=== PATIENT | female | born 1975 ===

== ENCOUNTER 2021-04-26 10:13 | Emergency (ER) | payer SELFPAY ==
[2021-04-26] VITALS (7 sets, daily range): BP systolic 142–172; BP diastolic 99–126; PULSE 57–75; RESP 12–20; TEMP 36.8–36.9; O2SAT 99–100
--- NOTE | ~2021-04-26 | XR_ITS ---
EXAMINATION: XR chest 1V portable DATE: 04/26/2021 10:57 INDICATION: Hypertension. TECHNIQUE: A single frontal view of the chest was obtained. COMPARISON: Chest 2 views 02/01/2014, CT abdomen and pelvis 12/04/2013 FINDINGS: The chest demonstrates clear lungs without pneumonia, pleural effusion, or pneumothorax. Th e heart size is normal. IMPRESSION: 1. No acute cardiopulmonary disease. Reviewed, dictated and finalized at location A.
--- NOTE | 2021-04-26 10:35 | ECG_ITS ---
Measurements Intervals [place] Rate: 69 P: 57 NM: 142 QRS: 27 QRSD: 75 T: 28 QT: 417 QTc: 448 Interpretive Statements SINUS RHYTHM NORMAL ECG Electronically Signed On 04-27-2021 8:41:41 CDT by Lance Garcia D.O.
[2021-04-26] MEDS: METOPROLOL TARTRATE INJ 5 MG/5 ML VIAL IV PUSH (11:08)
[2021-04-26] MEDS: NITROGLYCERIN OINTMENT 1 INCH DOSE 0.5 INCH TRANSDERM (11:08)
--- NOTE | 2021-04-26 11:09 | ED.GENADULT ---
HPI - General Adult General Chief complaint: Recheck/Abnormal Lab/Rx <Schuyler Jean PA-C - Last Filed: 04/26/21 13:40> Stated complaint: my blood pressure is high <Schuyler Jean PA-C - Last Filed: 04/26/21 13:40> Time Seen by Provider: 04/26/21 10:21 <Schuyler Jean PA-C - Last Filed: 04/26/21 13:40> Source: patient and RN notes reviewed <Schuyler Jean PA-C - Last Filed: 04/26/21 13:40> Mode of arrival: ambulatory <Schuyler Jean PA-C - Last Filed: 04/26/21 13:40> Limitations: no limitations <Schuyelr Jean PA-C - Last Filed: 04/26/21 13:40> History of Present Illness HPI narrative: Patient is a 45-year-old female who presents noting that she has had elevated blood pressure which has been untreated she notes that she has historically been on Bystolic does not know the dose has been off of it for roughly a year she has a history of medication noncompliance she has moved back to this area does not have a established primary care presents noting she has concern for elevated blood pressure denies any current symptoms of illness or other complaints <Schuyler Jean PA-C - Last Filed: 04/26/21 13:40> Related Data Allergies/adverse reactions: Allergies Allergy/AdvReac Type Severity Reaction Status Date / Time No Known Allergies Allergy Unverified 02/01/14 15:10 <Schuyler Jean PA-C - Last Filed: 04/26/21 13:40> Review of Systems Review of Systems: All systems reviewed & are unremarkable except as noted in HPI and below <Schuyler Jean PA-C - Last Filed: 04/26/21 13:40> PMFSH Past Medical History Medical History: Medical History (Updated 04/26/21 @ 13:39 by Schuyler Jean PA-C) Hypertension <Schuyler Jean PA-C - Last Filed: 04/26/21 13:40> Exam Narrative: GENERAL: Well-appearing, well-nourished, and in no acute distress. HEAD: Normocephalic, atraumatic. EYES: PERRLA and EOMI. ENT: Nares clear, no rhinorrhea or epistaxis. Mucous membranes moist. CHEST: Clear to auscultation. No respiratory distress. No wheezes rales or rhonchi HEART: Regular rate and rhythm. No murmur heard. Normal peripheral pulses. ABDOMEN: Soft, nontender, nondistended EXTREMITIES: Normal range of motion. No edema. SKIN: Warm, dry, no rash. NEURO: No focal deficits. Alert and oriented x3. Cranial nerves II through XII grossly intact PSYCH: Normal mood and affect. <YVETTE Breaux Last Filed: 04/26/21 13:40> Course Course Emergency Course: Patient in the room nondistressed aware of case findings treatment plan and diagnosis agreeing to follow-up as instructed or to return if symptoms worsen or concerns <YVETTE Breaux Last Filed: 04/26/21 13:40> Vital Signs Vital signs: Vital Signs Temperature 98.5 F 04/26/21 10:44 Pulse Rate 75 04/26/21 10:44 Respiratory Rate 14 04/26/21 10:44 Blood Pressure 170/120 H 04/26/21 10:44 Pulse Oximetry 100 04/26/21 10:44 Temperature 98.3 F 04/26/21 14:05 Pulse Rate 63 04/26/21 14:05 Respiratory Rate 18 04/26/21 14:05 Blood Pressure 142/99 H 04/26/21 14:05 Pulse Oximetry 100 04/26/21 14:05 <YVETTE Breaux Last Filed: 04/26/21 13:40> Medical Decision Making MDM Narrative Medical decision making narrative: Patient evaluated no high risk changes in her blood work had improvement with medications will be discharged home provided with primary care follow-up and reasons to return <YVETTE Breaux Last Filed: 04/26/21 13:40> Vital Signs Vital Signs: Vital Signs Temperature 98.5 F 04/26/21 10:44 Pulse Rate 75 04/26/21 10:44 Respiratory Rate 14 04/26/21 10:44 Blood Pressure 170/120 H 04/26/21 10:44 Pulse Oximetry 100 04/26/21 10:44 Temperature 98.3 F 04/26/21 14:05 Pulse Rate 63 04/26/21 14:05 Respiratory Rate 18 04/26/21 14:05 Blood Pressure 142/99 H 04/26/21 14:05 Pulse Oximetry 100 04/06
[2021-04-26 11:10] LABS: Basophils Absolute Auto 0.1 K/mm3 (0.0-0.1); Eosinophils Absolute Auto 0.2 K/mm3 (0-0.3); Eosinophils Percent Auto 3.3 % (0-4.4); Hematocrit 46.2 % (37.0-47.0); Hemoglobin 15.6 g/dL (12.0-15.0); Immature Granulocyte Absolute 0.02 K/mm3 (0.00-0.031); Immature Granulocyte Percent A 0.3 % (0-0.5); Lymphocytes Percent Auto 28.8 % (18.3-44.2); Mean Corpuscular HGB Conc 33.8 g/dl (32-36); Mean Corpuscular Hemoglobin 32.1 pg (26-34); Mean Corpuscular Volume 95.1 fl (80-100); Mean Platelet Volume 10.8 fl (7.4-10.4); Monocytes Absolute Auto 0.6 K/mm3 (0.1-0.6); Monocytes Percent Auto 8.6 % (2.6-8.5); Neutrophils Absolute Auto 4.2 K/mm3 (1.3-6.7); Platelet Count Result 250 k/mm3 (150-375); Red Blood Count 4.86 M/mm3 (4.2-5.4); Red Cell Distribution Width 12.7 % (11.5-14.5); White Blood Count 7.3 K/mm3 (4.5-10.0)
[2021-04-26 11:18] LABS: INR 0.9
[2021-04-26 11:19] LABS: Partial Thromboplastin Time 26.4 SECONDS (22.3-36.8)
[2021-04-26 11:48] LABS: Alanine Aminotransferase 24 U/L (4-35); Alkaline Phosphatase 62 U/L (38-126); Anion Gap 5 mmol/L (8-16); Aspartate Amino Transferase 34 U/L (14-36); Bilirubin,Total 0.5 mg/dL (0.2-1.3); Blood Urea Nitrogen 17 mg/dL (7-17); Calcium 9.1 mg/dL (8.4-10.2); Carbon Dioxide 29 mmol/L (22-30); Chloride 104 mmol/L (98-107); Estimated CRCL calculation 93 ml/min; Estimated Glomerular Filt Rate > 60; Glucose 98 mg/dL (65-110); Potassium 4.4 mmol/L (3.4-5.0); Sodium 138 mmol/L (137-145)
[2021-04-26 11:52] LABS: Troponin I < 0.012 ng/mL (0.000-0.034)
[2021-04-26 12:23] LABS: Add Urine Microscopic? YES; Appearance Urine Cloudy (Clear); Bacteria Urine Trace /hpf; Bilirubin Urine Negative (Negative); Blood Urine Negative (Negative); Color Urine Yellow (Yellow); Glucose Urine UA Negative (Negative); Ketones Urine Negative (Negative); Leukocyte Esterase Ur Negative LEU/UL (Negative); Mucus Urine Rare /lpf; Nitrate Urine Negative (Negative); Protein Urine 1+ mg/dL (Negative); Specific Grav Ur 1.017 (1.001-1.035); Squamous Epithelial Cell Urine Many /hpf (Few); Urobilinogen Urine Negative mg/dL (<2.0); WBC Urine 0-3 /hpf
[2021-04-26] MEDS: KETOROLAC 30 MG/ML VIAL (*BKC) IV PUSH (12:27)
[2021-04-26 12:38] LABS: Amphetamine Screen Urine Negative (Negative); Barbiturate Screen Urine Negative (Negative); Benzodiazepines Screen Urine Negative (Negative); Cannabinoid Screen Urine Positive (Negative); Cocaine Screen Urine Negative (Negative); Methadone Screen Urine Negative (Negative); Opiate Screen Urine Negative (Negative); Phencyclidine Screen Urine Negative (Negative)
[2021-04-26 14:04] LABS: Troponin I < 0.012 ng/mL (0.000-0.034)
== END 2021-04-26 14:05 | disposition home or self-care (01) ==
PROVIDERS: Emergency Medicine Emergency Medical Services; Emergency Provider General Practice
DX: R03.0 Elevated blood-pressure reading, without diagnosis of hypertension (principal)
CPT/HCPCS: 36415; 71045; 80053; 80307; 81001; 84484; 85025; 85610; 85730; 93005; 96374; 96375; 99284; A9270; J1885

== ENCOUNTER 2022-02-25 11:21 | Emergency (ER) | payer SELFPAY ==
--- NOTE | ~2022-02-25 | XR_ITS ---
EXAMINATION: XR chest 2V DATE: 02/25/2022 12:05 INDICATION: Chest pain TECHNIQUE: AP and lateral views of the chest are obtained. COMPARISON: 04/26/2021 FINDINGS: The lungs are free of acute opacities. No pleural effusion or pneumothorax. The cardiomedia stinal silhouette is normal. There is mild thoracic spondylosis. IMPRESSION: 1. No acute cardiopulmonary abnormality. Reviewed, dictated and finalized at location B.
--- NOTE | ~2022-02-25 | US_ITS ---
EXAMINATION: US venous doppler LE RT DATE: 02/25/2022 12:02 INDICATION: Right lower limb pain TECHNIQUE: Solares scale images without and with compression and Doppler images of the right lower extre mity veins were obtained. COMPARISON: None FINDINGS: The right common femoral vein, profunda femoral vein, femoral vein, popliteal vein, peronea l trunk, posterior tibial veins, and greater saphenous vein are patent. IMPRESSION: 1. Patent right lower extremity veins. No evidence of deep venous thrombosis. Reviewed, dictated and finalized at location B.
[2022-02-25 11:27] VITALS: BP 162/100; PULSE 89; RESP 22; TEMP 36.6; O2SAT 99
--- NOTE | 2022-02-25 11:31 | ECG_ITS ---
Measurements Intervals [place] Rate: 90 P: 68 [place]: 130 QRS: 43 QRSD: 75 T: 44 QT: 362 QTc: 443 Interpretive Statements SINUS RHYTHM COMPARED TO ECG 04/26/2021 10:55:31 NO SIGNIFICANT CHANGES Electronically Signed On 02-25-2022 12:40:52 CDT by Bari Nicholas M.D.
--- NOTE | 2022-02-25 11:38 | ED.CHESTPAIN ---
HPI - Chest Pain General Chief Complaint: Chest Pain Stated Complaint: chest pain and numbness to leg Time Seen by Provider: 02/25/22 11:25 History of Present Illness HPI narrative: 46-year-old female presents to the ER today for complaints of chest pain and right lower extremity pain. Reports that the chest pain started this morning and has been intermittent. She says that it is in her center chest and it hurts to breathe. She feels short of breath with exertion. Pain is improved right now. She has had the right lower extremity pain for the past week or so. Pain starts in her right lateral hip and goes all the way down to her ankle. Denies having any lower extremity swelling or numbness. She is a current smoker. She has a history of hypertension but is not currently on any medication for this. Denies any other health history. Related Data Allergies Allergy/AdvReac Type Severity Reaction Status Date / Time No Known Allergies Allergy Unverified 08/30/21 17:01 Review of Systems Review of Systems: CONSTITUTIONAL: Denies fever, chills, or sweats. EYES: Denies visual changes, redness, or discharge. ENT: Denies rhinorrhea, congestion, sore throat, or otalgia. CARDIOVASCULAR: reports chest pain, no edema, no palpitations RESPIRATORY: SOB with exertion GASTROINTESTINAL: Denies abdominal pain, nausea, vomiting, or diarrhea. GENITOURINARY: Denies dysuria or hematuria. SKIN: Denies rash or itching. MUSCULOSKELETAL: right lower ext pain NEUROLOGIC: Denies headache, numbness, dizziness, or weakness. PSYCHIATRIC: Denies anxiety or depression. [facility] Past Medical History Medical History Hypertension Exam Narrative: GENERAL: Well-appearing, well-nourished, and in no acute distress. HEAD: Normocephalic, atraumatic. EYES: PERRLA and EOMI. NECK: Supple. No adenopathy or masses. No carotid bruits or JVD CHEST: Clear to auscultation. No respiratory distress. No wheezes rales or rhonchi HEART: Regular rate and rhythm. No murmur heard. Normal peripheral pulses. ABDOMEN: Soft, nontender, nondistended, normal active bowel sounds. EXTREMITIES: Normal range of motion. No edema. SKIN: Warm, dry, no rash. NEURO: No focal deficits. Alert and oriented x3. PSYCH: Normal mood and affect. Course Vital Signs Vital signs: Vital Signs Temperature 36.6 C 02/25/22 11:27 Pulse Rate 89 02/25/22 11:27 Respiratory Rate 22 H 02/25/22 11:27 Blood Pressure 162/100 H 02/25/22 11:27 Pulse Oximetry 99 02/25/22 11:27 Oxygen Delivery Room Air 02/25/22 11:27 Temperature 36.6 C 02/25/22 11:27 Pulse Rate 83 02/25/22 15:47 Respiratory Rate 23 H 02/25/22 15:47 Blood Pressure 137/98 H 02/25/22 15:47 Pulse Oximetry 100 02/25/22 15:47 Oxygen Delivery Room Air 02/25/22 11:27 MDM - Chest Pain Lab Data Attestation: I reviewed the patient's lab results. Result diagrams: 02/25/22 11:37 02/25/22 11:37 Labs: Lab Results 02/25/22 02/25/22 02/25/22 Range/Units 11:37 11:37 11:37 WBC 8.4 (4.5-10.0) K/mm3 RBC 4.70 (4.2-5.4) M/mm3 Hgb 14.8 (12.0-15.0) g/dL Hct 44.3 (37.0-47.0) % MCV 94.3 (80-100) fl MCH 31.5 (26-34) pg MCHC 33.4 (32-36) g/dl RDW 13.0 (11.5-14.5) % Plt Count 286 (150-375) k/mm3 MPV 10.5 H (7.4-10.4) fl Immature Gran % (Auto) 0.4 (0-0.5) % Neut % (Auto) 63.1 (45.5-73.1) % Lymph % (Auto) 25.8 (18.3-44.2) % [place] % (Auto) 7.7 (2.6-8.5) % Eos % (Auto) 2.5 (0-4.4) % Baso % (Auto) 0.5 (0.2-1.2) % Lymph # (Auto) 2.17 (0.9-3.2) K/mm3 [place] # (Auto) 0.7 H (0.1-0.6) K/mm3 Eos # (Auto) 0.2 (0-0.3) K/mm3 Baso # (Auto) 0.0 (0.0-0.1) K/mm3 Abs Immat Gran (auto) 0.03 (0.00-0.031) K/mm3 Absolute Neuts (auto) 5.3 (1.3-6.7) K/mm3 Absolute Nucleated RBC 0.0 (0.0-0.012) K/mm3 Nucleated RBC % 0.0 (0.0-0.2) % PT
[2022-02-25 11:42] LABS: Basophils Percent Auto 0.5 % (0.2-1.2); Eosinophils Absolute Auto 0.2 K/mm3 (0-0.3); Eosinophils Percent Auto 2.5 % (0-4.4); Hematocrit 44.3 % (37.0-47.0); Hemoglobin 14.8 g/dL (12.0-15.0); Immature Granulocyte Absolute 0.03 K/mm3 (0.00-0.031); Immature Granulocyte Percent A 0.4 % (0-0.5); Lymphocytes Absolute Auto 2.17 K/mm3 (0.9-3.2); Lymphocytes Percent Auto 25.8 % (18.3-44.2); Mean Corpuscular HGB Conc 33.4 g/dl (32-36); Mean Corpuscular Hemoglobin 31.5 pg (26-34); Mean Corpuscular Volume 94.3 fl (80-100); Mean Platelet Volume 10.5 fl (7.4-10.4); Monocytes Absolute Auto 0.7 K/mm3 (0.1-0.6); Monocytes Percent Auto 7.7 % (2.6-8.5); Neutrophils Absolute Auto 5.3 K/mm3 (1.3-6.7); Neutrophils Percent Auto 63.1 % (45.5-73.1); Platelet Count Result 286 k/mm3 (150-375); White Blood Count 8.4 K/mm3 (4.5-10.0)
[2022-02-25] MEDS: ONDANSETRON INJ 4 MG/2 ML VIAL IV PUSH (11:45)
[2022-02-25] MEDS: MORPHINE SULFATE (*CRX) 4 MG/ML INJ IV PUSH ×2 (11:45→15:05)
[2022-02-25] MEDS: ASPIRIN 81 MG CHEWABLE TABLET 324 MG PO (11:45)
[2022-02-25 11:51] LABS: Prothrombin Time 12.3 Seconds (11.1-14.7)
[2022-02-25 12:01] LABS: D Dimer 0.33 ug/mL (<0.48)
[2022-02-25 12:02] LABS: Alanine Aminotransferase 18 U/L (6-35); Albumin Level 4.1 g/dL (3.5-5.1); Alkaline Phosphatase 77 U/L (38-126); Anion Gap 5 mmol/L (8-16); Aspartate Amino Transferase 31 U/L (14-36); Bilirubin,Total 0.6 mg/dL (0.2-1.3); Blood Urea Nitrogen 19 mg/dL (7-17); Calcium 8.3 mg/dL (8.4-10.2); Carbon Dioxide 26 mmol/L (22-30); Chloride 104 mmol/L (98-107); Estimated CRCL calculation 81 ml/min; Estimated Glomerular Filt Rate > 60; Glucose 125 mg/dL (65-110); Lipase 114 U/L (23-300); Potassium 4.1 mmol/L (3.4-5.0); Sodium 135 mmol/L (137-145)
[2022-02-25 12:04] LABS: Troponin I < 0.012 ng/mL (0.000-0.034)
[2022-02-25 13:00] VITALS: BP 165/98; PULSE 71; RESP 21; O2SAT 100
[2022-02-25 13:40] VITALS: BP 162/98; PULSE 76; RESP 20; O2SAT 100
[2022-02-25 14:21] VITALS: BP 141/103; PULSE 83; RESP 18; O2SAT 100
[2022-02-25 14:55] VITALS: BP 157/108; PULSE 79; RESP 14; O2SAT 100
[2022-02-25 15:18] LABS: Troponin I < 0.012 ng/mL (0.000-0.034)
[2022-02-25 15:47] VITALS: BP 137/98; PULSE 83; RESP 23; O2SAT 100
== END 2022-02-25 15:49 | disposition home or self-care (01) ==
PROVIDERS: Emergency Provider Nurse Practitioner Family
DX: R07.9 Chest pain, unspecified (principal); M54.31 Sciatica, right side
CPT/HCPCS: 36415; 71046; 80053; 83690; 84484; 85025; 85380; 85610; 85730; 93005; 93971; 96374; 96375; 96376; 99284; A9270; J2270; J2405

== ENCOUNTER 2022-10-03 11:55 | Emergency (ER) | payer SELFPAY ==
[2022-10-03 11:56] VITALS: BP 168/106; PULSE 92; RESP 18; TEMP 37; O2SAT 100
[2022-10-03] MEDS: LIDO 1%/EPINEPHRINE 1:100,000 10 ML VIAL (12:45)
--- NOTE | 2022-10-03 13:11 | ED.WOUNDLAC ---
HPI - Wound/Laceration General Chief Complaint: Wound/Laceration Stated Complaint: laceration to eyebrow Time Seen by Provider: 10/03/22 12:13 History of Present Illness HPI narrative: 47-year-old female presents to the emergency room for evaluation of a laceration to her right brow. Patient states that she walked into a door frame while chasing after one of her grandchildren. Denies any LOC or altered mental status. No other injuries. Denies any nausea or vomiting dizziness or lightheadedness. Related Data Allergies Allergy/AdvReac Type Severity Reaction Status Date / Time No Known Allergies Allergy Verified 10/03/22 11:55 Review of Systems Review of Systems: CONSTITUTIONAL: Denies fever, chills, or sweats. EYES: Denies visual changes, redness, or discharge. ENT: Denies rhinorrhea, congestion, sore throat, or otalgia. CARDIOVASCULAR: Denies chest pain, palpitations, or edema. RESPIRATORY: Denies cough or dyspnea. GASTROINTESTINAL: Denies abdominal pain, nausea, vomiting, or diarrhea. GENITOURINARY: Denies dysuria or hematuria. SKIN: Denies rash or itching. MUSCULOSKELETAL: Denies back pain, joint pain, or myalgia. NEUROLOGIC: Denies headache, numbness, dizziness, or weakness. PSYCHIATRIC: Denies anxiety or depression. [facility] Past Medical History Medical History Hypertension Exam Narrative: GENERAL: Well-appearing, well-nourished, no physical limitations, and in no acute distress. HEAD: Normocephalic, atraumatic. EYES: Conjunctivae normal, PERRLA and EOMI. ENT: External nose normal, Nares clear, no rhinorrhea or epistaxis. Mucous membranes moist. Oropharynx without tonsillar hypertrophy exudate or other lesions. External ears normal, bilateral TMs normal bilaterally NECK: Supple. CHEST: Clear to auscultation. No respiratory distress. No wheezes rales or rhonchi. HEART: Regular rate and rhythm. No murmur heard. Normal peripheral pulses. EXTREMITIES: Normal range of motion. No edema. No clubbing or cyanosis SKIN: 4 cm linear laceration over the right brow NEURO: No focal deficits. Alert and oriented x3. MAEW. CN's II-XI intact bilaterally, normal gait PSYCH: Cooperative. Normal mood and affect. Course Vital Signs Vital signs: Vital Signs Temperature 37.0 C 10/03/22 11:56 Pulse Rate 92 10/03/22 11:56 Respiratory Rate 18 10/03/22 11:56 Blood Pressure 168/106 H 10/03/22 11:56 Pulse Oximetry 100 10/03/22 11:56 Oxygen Delivery Room Air 10/03/22 11:56 Temperature 37.0 C 10/03/22 11:56 Pulse Rate 92 10/03/22 11:56 Respiratory Rate 18 10/03/22 11:56 Blood Pressure 168/106 H 10/03/22 11:56 Pulse Oximetry 100 10/03/22 11:56 Oxygen Delivery Room Air 10/03/22 11:56 Procedures Laceration Laceration 1: Date: 10/03/22 Time: 13:14 Site: face Side (If applicable): right Size (cm): 4 Description: linear Depth: simple, single layer Local Anesthetic: lidocaine 1% and with epi Amount of anesthesia used (mL): 6 Pre-repair: irrigated ====== Skin Level ====== Skin layer closed with: nylon Size (cm): 4-0 Number of sutures: 7 Technique: simple, interrupted ====== Subcutaneous Layer ====== ====== Muscle Layer ====== ====== Tendon Layer ====== Discharge Plan Discharge Clinical Impression: Laceration Patient Disposition: Home, Self-Care Condition: Stable Instructions: Antibiotic Form, Laceration (ED) Additional Instructions: Sutures to be removed in 7 days. Monitor for signs of infection which include redness, swelling, tenderness, purulent drainage. Prescriptions: No Action nebivolol [Bystolic] 5 mg tablet 5 mg PO DAILY Qty: 30 0RF hydrocodone-acetaminophen 7.5-325 mg tablet 1 tablet PO Q6H PRN (Reason: pain) Qty: 10 0RF cyclobenzaprine 10 mg tablet 10 mg PO TID PRN (Reason:
== END 2022-10-03 13:56 | disposition home or self-care (01) ==
PROVIDERS: Emergency Provider Nurse Practitioner Family
DX: S01.111A Laceration without foreign body of right eyelid and periocular area, initial encounter (principal); I10 Essential (primary) hypertension; W22.01XA Walked into wall, initial encounter
CPT/HCPCS: 12011; 99282

== ENCOUNTER 2023-01-30 08:19 | Emergency (ER) | payer SELFPAY ==
[2023-01-30] VITALS (12 sets, daily range): BP systolic 131–145; BP diastolic 95–117; PULSE 70–95; RESP 12–23; O2SAT 99–100
--- NOTE | ~2023-01-30 | XR_ITS ---
XR chest 2V DATE: 01/30/2023 09:29 INDICATION: Chest pain TECHNIQUE: PA and lateral views COMPARISON: 02/25/2022 AP and lateral chest FINDINGS: Normal heart size. No hilar or mediastinal enlargement. No pulmonary infiltrate or consolid ation, pleural effusion or pulmonary vascular congestion or pneumothorax. There is mild to moderate thoracic dextroscoliosis. No suspicious osteolytic or osteoblastic lesions. IMPRESSION: No active cardiopulmonary disease Reviewed, dictated and finalized at location B.
--- NOTE | 2023-01-30 08:22 | ECG_ITS ---
Measurements Intervals [place] Rate: 89 P: 59 [place]: 139 QRS: 25 QRSD: 71 T: 41 QT: 346 QTc: 421 Interpretive Statements SINUS RHYTHM BASELINE ARTIFACT- I, II, III, AVR, AVL, V1 NORMAL ECG COMPARED TO ECG 02/25/2022 11:30:11 NO SIGNIFICANT CHANGES Electronically Signed On 01-30-2023 11:32:38 CDT by Lance Garcia D.O.
[2023-01-30 08:57] LABS: Basophils Percent Auto 0.5 % (0.2-1.2); Eosinophils Absolute Auto 0.2 K/mm3 (0-0.3); Eosinophils Percent Auto 3.3 % (0-4.4); Hematocrit 45.6 % (37.0-47.0); Hemoglobin 15.5 g/dL (12.0-15.0); Immature Granulocyte Absolute 0.02 K/mm3 (0.00-0.031); Immature Granulocyte Percent A 0.3 % (0-0.5); Lymphocytes Absolute Auto 2.06 K/mm3 (0.9-3.2); Lymphocytes Percent Auto 31.2 % (18.3-44.2); Mean Corpuscular Hemoglobin 31.6 pg (26-34); Mean Corpuscular Volume 93.1 fl (80-100); Mean Platelet Volume 11.1 fl (7.4-10.4); Monocytes Absolute Auto 0.6 K/mm3 (0.1-0.6); Monocytes Percent Auto 9.5 % (2.6-8.5); Neutrophils Absolute Auto 3.6 K/mm3 (1.3-6.7); Neutrophils Percent Auto 55.2 % (45.5-73.1); Platelet Count Result 296 k/mm3 (150-375); Red Cell Distribution Width 12.4 % (11.5-14.5); White Blood Count 6.6 K/mm3 (4.5-10.0)
[2023-01-30 09:03] LABS: Alanine Aminotransferase 20 U/L (6-35); Albumin Level 4.3 g/dL (3.5-5.1); Alkaline Phosphatase 62 U/L (38-126); Anion Gap 9 mmol/L (8-16); Aspartate Amino Transferase 30 U/L (14-36); Bilirubin,Total 0.8 mg/dL (0.2-1.3); Blood Urea Nitrogen 21 mg/dL (7-17); Calcium 9.7 mg/dL (8.4-10.2); Carbon Dioxide 23 mmol/L (22-30); Chloride 104 mmol/L (98-107); Estimated CRCL calculation 80 ml/min; Estimated Glomerular Filt Rate > 60; Glucose 91 mg/dL (65-110); Lipase 75 U/L (23-300); Potassium 4.1 mmol/L (3.4-5.0); Prothrombin Time 13.4 Seconds (11.1-14.7); Sodium 136 mmol/L (137-145)
[2023-01-30 09:04] LABS: Partial Thromboplastin Time 26.9 SECONDS (22.3-36.8)
[2023-01-30] MEDS: FAMOTIDINE 20 MG/2 ML VIAL IV PUSH (09:08)
[2023-01-30] MEDS: BELLADONNA ALK/PHENOB ELIX 10 ML, MAG HYDROX/ALUMINUM HYD/SIMETH 30 ML, LIDOCAINE HCL 2... PO (09:11)
[2023-01-30 09:15] LABS: Troponin I < 0.012 ng/mL (0.000-0.034)
--- NOTE | 2023-01-30 09:23 | ED.CHESTPAIN ---
HPI - Chest Pain General Chief Complaint: Chest Pain Stated Complaint: chest pain Time Seen by Provider: 01/30/23 08:38 History of Present Illness HPI narrative: This is a 47-year-old female, who presents to the emergency department complaining of chest pain for the past 2 days. The patient states she was seen in outside hospital and recommended to be observed approximately 4 days ago but could not. She states 2 days ago, she was in her usual state of health, when lying down she felt a mild to moderate substernal pressure and burning-like sensation with radiation to the left arm. She denies any obvious aggravating or alleviating factors. It was accompanied by nausea. She feels this is similar to acid reflux. She denies shortness of breath, loss of consciousness. Related Data Allergies Allergy/AdvReac Type Severity Reaction Status Date / Time No Known Allergies Allergy Verified 01/30/23 08:33 Review of Systems Review of Systems: CONSTITUTIONAL: Denies fever, chills, or sweats. CARDIOVASCULAR: Chest pressure denies palpitations, or edema. RESPIRATORY: Denies cough or dyspnea. GASTROINTESTINAL: Nausea denies abdominal pain, vomiting, or diarrhea. GENITOURINARY: Denies dysuria or hematuria. SKIN: Denies rash or itching. MUSCULOSKELETAL: Denies back pain, joint pain, or myalgia. NEUROLOGIC: Denies headache, numbness, dizziness, or weakness. PSYCHIATRIC: Denies anxiety or depression. PMFSH Past Medical History Medical History (Updated 01/30/23 @ 10:32 by Dano Stack MD) Hypertension Surgical History Surgical History (Updated 01/30/23 @ 09:25 by Dano Stack MD) No significant past surgical history Social History Social History (Updated 01/30/23 @ 09:25 by Dano Stack MD) Smoking status: Current every day smoker Alcohol intake: never Substance use: current Substance use type: marijuana Exam Narrative: GENERAL: Well-developed, well-nourished, and in no acute distress. HEAD: Normocephalic, atraumatic. EYES: PERRLA and EOMI. ENT: Nares clear, no rhinorrhea or epistaxis. Mucous membranes moist. Oropharynx without tonsillar hypertrophy exudate or other lesions. CHEST: Clear to auscultation. No respiratory distress. No wheezes rales or rhonchi HEART: Regular rate and rhythm. No murmur heard. Normal peripheral pulses. ABDOMEN: Soft, nontender, nondistended, normal active bowel sounds. EXTREMITIES: Normal range of motion. No edema. SKIN: Warm, dry, no rash. NEURO: No focal deficits. Alert and oriented x3. PSYCH: Normal mood and affect. Course Course Emergency Course: 10:30 - Troponin negative. The patient states her pain is improved. Heart score 2. Will discharge with PPI, nausea medications and recommendation to follow-up with her primary care doctor. Discussed return and emergent precautions including signs/symptoms of ACS and respiratory distress. The patient voiced understanding and is comfortable with the plan. All questions answered to her satisfaction. Vital Signs Vital signs: Vital Signs Pulse Rate 89 01/30/23 08:23 Respiratory Rate 16 01/30/23 08:23 Blood Pressure 145/104 H 01/30/23 08:23 Pulse Oximetry 100 01/30/23 08:23 Oxygen Delivery Room Air 01/30/23 08:23 Pulse Rate 84 01/30/23 10:16 Respiratory Rate 17 01/30/23 10:01 Blood Pressure 138/95 H 01/30/23 10:00 Pulse Oximetry 100 01/30/23 10:16 Oxygen Delivery Room Air 01/30/23 09:00 MDM - Chest Pain MDM Narrative Medical decision making narrative: Plan: Labs, EKG, troponin, imaging, reassess Differential Diagnosis Differential diagnosis: Likely pneumothorax and other (GERD, ACS, metabolic abnormality, other) Lab Data 01/30/23 08:39 01/30/23 08:39 Labs: Lab Results 01/30/23 Range/Units 08:39 WBC 6.6 (4.5-10.0) K/mm3 RBC 4.90 (4.2-5.4) M/mm3 Hgb 15.5 H (12.0-15.0) g/dL Hct 45.6 (37.0-47.0) % MCV 93.1
== END 2023-01-30 10:56 | disposition home or self-care (01) ==
PROVIDERS: Emergency Provider Preventive Medicine Aerospace Medicine
DX: R07.89 Other chest pain (principal); K21.9 Gastro-esophageal reflux disease without esophagitis; I10 Essential (primary) hypertension; F17.200 Nicotine dependence, unspecified, uncomplicated
CPT/HCPCS: 36415; 71046; 80053; 83690; 84484; 85025; 85610; 85730; 93005; 96374; 99284; A9270